=== PATIENT | male | born 1995 | race Caucasian/White ===

== ENCOUNTER 2023-02-20 16:28 | Emergency (ER) | payer OTHER ==
[~2023-02-20] VITALS: Ht 167.6 cm; Wt 56.8 kg
[2023-02-20 16:28] VITALS: BP 126/87; TEMP 98.9; O2SAT 100
[~2023-02-20 16:28] MED LIST: CEPH500C PO
[2023-02-20] MEDS ORDERED: RABIES VACCINE HUMAN 2.5 INTERNATIONAL UNITS/ML VIAL IM ONE (19:45)
== END 2023-02-20 20:28 | disposition home or self-care (01) ==
LOC: M ED 16:28
DX: Z29.14 Encounter for prophylactic rabies immune globulin (principal)

== ENCOUNTER 2023-02-27 16:16 | Emergency (ER) | payer OTHER ==
[~2023-02-27] VITALS: Ht 167.6 cm; Wt 55.7 kg
[2023-02-27 16:17] VITALS: BP 138/82; TEMP 98.1; O2SAT 100
[2023-02-27] MEDS ORDERED: RABIES VACCINE HUMAN 2.5 INTERNATIONAL UNITS/ML VIAL IM ONE (17:40)
== END 2023-02-27 18:03 | disposition home or self-care (01) ==
LOC: M ED 16:16
DX: Z20.3 Contact with and (suspected) exposure to rabies (principal); Z23 Encounter for immunization; W53.81XD Bitten by other rodent, subsequent encounter

== ENCOUNTER 2023-04-09 05:27 | Emergency (ER) | payer OTHER ==
[2023-04-09] MEDS ORDERED: ONDANSETRON 4MG 2ML VIAL As Ordered ONE (05:48)
[2023-04-09] MEDS ORDERED: NS 1,000 ML IV ONE (05:50)
[2023-04-09] MEDS ORDERED: MULTIVITAMIN -ADULT INJECTION 10 ML, THIAMINE INJection 100 MG, FOLIC ACID 1 MG in NS 1... IV ONE (05:50)
[2023-04-09] MEDS ORDERED: ONDANSETRON 4MG 2ML VIAL IV ONE (05:55)
[2023-04-09] MEDS ORDERED: HALOPERIDOL 5MG/ML 1ML VIAL IV ONE (06:10)
[2023-04-09] MEDS ORDERED: MORPHINE 4 MG/ML 1ML VIAL IV ONE (06:15)
[2023-04-09 06:45] LABS: BASO # 0.1 10^3/uL (0.0-0.2); BASO % 0.6 % (0.0-1.0); EOS # 0.1 10^3/uL (0.0-0.5); HEMATOCRIT 50.9 % (42.0-52.0); HEMOGLOBIN 18.5 g/dl (13.5-17.5); LYMPH # 2.3 10^3/uL (1.5-5.0); LYMPH % 27.9 % (24.0-44.0); MEAN CORPUSCULAR HEMOGLOBIN 31.7 pg (27.0-33.0); MEAN CORPUSCULAR HGB CONC 36.3 g/dl (32.0-36.5); MEAN CORPUSCULAR VOLUME 87.2 fl (80.0-96.0); MONO # 0.6 10^3/uL (0.0-0.8); MONO % 6.8 % (2.0-8.0); NEUTROPHILS # 5.3 10^3/uL (1.5-8.5); NEUTROPHILS % 63.5 % (36.0-66.0); PLATELET COUNT, AUTOMATED 173 10^3/uL (150-450); RED BLOOD COUNT 5.84 10^6/uL (4.30-6.10); WHITE BLOOD COUNT 8.3 10^3/uL (4.0-10.0)
[2023-04-09 07:37] LABS: VENOUS BASE EXCESS -0.1 (-2.0-2.0); VENOUS HCO3 25.5 MMOL/L (23.0-27.0); VENOUS O2 SATURATION 82.1 % (60.0-80.0); VENOUS PARTIAL PRESSURE O2 47.1 mmHg (30.0-50.0); VENOUS PH 7.372 UNITS (7.330-7.430); VENOUS STANDARD HCO3 23.9 MMOL/L; VENOUS TOTAL CO2 26.9 MMOL/L (24.0-28.0)
[2023-04-09] MEDS ORDERED: MORPHINE 2 MG/ML 1ML VIAL IV ONE (07:55)
[2023-04-09 08:02] LABS: ETHYL ALCOHOL (ETHANOL) < 0.003 % (0.000-0.010)
[2023-04-09 08:04] LABS: ALBUMIN 4.6 G/DL (3.2-5.2); ALKALINE PHOSPHATASE 56 U/L (46-116); ALT/SGPT 27 U/L (7.0-40); AST/SGOT 26 U/L (<34); BILIRUBIN,DIRECT 0.3 MG/DL (<0.4); BILIRUBIN,TOTAL 0.9 MG/DL (0.3-1.2); BLOOD UREA NITROGEN 11 MG/DL (9-23); CALCIUM LEVEL 10.5 MG/DL (8.5-10.1); CARBON DIOXIDE LEVEL 22 MMOL/L (20-31); CHLORIDE LEVEL 106 MMOL/L (98-107); CPK CREATINE PHOSPHOKINASE 91 U/L (46-171); CREATININE FOR GFR 0.77 MG/DL (0.70-1.30); GLOMERULAR FILTRATION RATE > 60.0 (>60); GLUCOSE, FASTING 109 MG/DL (60-100); POTASSIUM SERUM 4.5 MMOL/L (3.5-5.1); SALICYLATE LEVEL < 3.0 MG/DL (<30); SODIUM LEVEL 143 MMOL/L (136-145); TOTAL PROTEIN 7.7 G/DL (5.7-8.2)
[2023-04-09 08:06] LABS: THYROID STIMULATING HORMONE 2.811 uIU/ML (0.55-4.78)
[2023-04-09] MEDS ORDERED: ISOVUE-370 76% 100ML VIAL As Ordered ONE (08:07)
[2023-04-09 08:15] LABS: AMPHETAMINES LEVEL URINE NEGATIVE (NEGATIVE)
[2023-04-09 08:16] LABS: BARBITURATES URINE NEGATIVE (NEGATIVE); BENZODIAZEPINES URINE NEGATIVE (NEGATIVE); COCAINE METABOLITE URINE NEGATIVE (NEGATIVE); METHADONE URINE NEGATIVE (NEGATIVE); PHENCYCLIDINE URINE NEGATIVE (NEGATIVE)
[2023-04-09 08:17] LABS: CANNABINOIDS URINE POSITIVE (NEGATIVE); OPIATES URINE POSITIVE (NEGATIVE)
[2023-04-09 08:18] LABS: RSV AMPLIFICATION NEGATIVE (NEGATIVE)
[2023-04-09 10:00] VITALS: BP 132/76; TEMP 98.6; O2SAT 98
== END 2023-04-09 10:14 | disposition home or self-care (01) ==
LOC: M ED 05:27 → EDBD 05:27 → M ED 10:14
DX: R10.9 Unspecified abdominal pain (principal); R11.10 Vomiting, unspecified; F10.10 Alcohol abuse, uncomplicated
CPT/HCPCS: 71275; 74177; 80047; 80048; 80076; 80143; 80307; 82077; 82550; 82803; 84443; 85025; 87631; 93005; 93041; 94760; 96365; 96366; 96375; 99285; J1630; J2405; J3411; Q9967

== ENCOUNTER 2023-05-15 18:53 | Emergency (ER) | payer OTHER, MEDICAID ==
[~2023-05-15] VITALS: Ht 167.6 cm; Wt 57.1 kg
[2023-05-15 22:14] LABS: BASO # 0.1 10^3/uL (0.0-0.2); BASO % 0.8 % (0.0-1.0); EOS # 0.1 10^3/uL (0.0-0.5); EOS % 0.9 % (0.0-3.0); HEMATOCRIT 47.8 % (42.0-52.0); HEMOGLOBIN 16.9 g/dl (13.5-17.5); LYMPH # 2.4 10^3/uL (1.5-5.0); MEAN CORPUSCULAR HEMOGLOBIN 31.7 pg (27.0-33.0); MEAN CORPUSCULAR HGB CONC 35.4 g/dl (32.0-36.5); MEAN CORPUSCULAR VOLUME 89.7 fl (80.0-96.0); MONO # 0.6 10^3/uL (0.0-0.8); MONO % 8.4 % (2.0-8.0); NEUTROPHILS # 4.4 10^3/uL (1.5-8.5); NEUTROPHILS % 57.6 % (36.0-66.0); PLATELET COUNT, AUTOMATED 246 10^3/uL (150-450); RED BLOOD COUNT 5.33 10^6/uL (4.30-6.10); WHITE BLOOD COUNT 7.6 10^3/uL (4.0-10.0)
[2023-05-15 22:20] VITALS: BP 135/90; TEMP 98.9; O2SAT 99
[2023-05-15 22:24] LABS: ALBUMIN 4.9 G/DL (3.2-5.2); ALKALINE PHOSPHATASE 54 U/L (46-116); ALT/SGPT 25 U/L (7.0-40); AST/SGOT 25 U/L (<34); BILIRUBIN,DIRECT 0.3 MG/DL (<0.4); BILIRUBIN,TOTAL 0.8 MG/DL (0.3-1.2); BLOOD UREA NITROGEN 12 MG/DL (9-23); CALCIUM LEVEL 9.8 MG/DL (8.5-10.1); CARBON DIOXIDE LEVEL 27 MMOL/L (20-31); CHLORIDE LEVEL 102 MMOL/L (98-107); CREATININE FOR GFR 0.74 MG/DL (0.70-1.30); GLOMERULAR FILTRATION RATE > 60.0 (>60); GLUCOSE, FASTING 94 MG/DL (60-100); POTASSIUM SERUM 3.5 MMOL/L (3.5-5.1); SODIUM LEVEL 137 MMOL/L (136-145); TOTAL PROTEIN 7.4 G/DL (5.7-8.2)
== END 2023-05-15 23:39 | disposition home or self-care (01) ==
LOC: M ED 18:53
DX: R10.31 Right lower quadrant pain (principal); F17.200 Nicotine dependence, unspecified, uncomplicated; F12.10 Cannabis abuse, uncomplicated; F10.10 Alcohol abuse, uncomplicated